=== PATIENT | male | born 2000 | race Two or more races ===

== ENCOUNTER 2022-03-05 12:16 | Emergency (ER) | payer BC, OTHER ==
[~2022-03-05] VITALS: Ht 167.6 cm; Wt 59.0 kg
[2022-03-05 12:29] VITALS: BP 154/100
[2022-03-05 14:09] LABS: Basophils # (auto) 0 10 ^3/uL (0-0.2); Basophils % (auto) 0.3 % (0.0-2.0); Eosinophils # (auto) 0.1 10 ^3/uL (0-0.8); Eosinophils % (auto) 0.9 % (0.0-7.0); Hematocrit 49.5 % (41.0-53.0); Hemoglobin 16.1 g/dL (13.5-17.5); Lymphocytes # (auto) 1.1 10 ^3/uL (0.4-5.4); Lymphocytes % (auto) 11.6 % (10.0-50.0); Mean Corpuscular Hemoglobin 29.1 pg (28.0-32.0); Mean Corpuscular Hgb Conc. 32.5 g/dL (32.0-36.0); Mean Corpuscular Volume 89.7 fL (80.0-100.0); Monocytes # (auto) 0.6 10 ^3/uL (0-1.3); Monocytes % (auto) 6.6 % (0.0-12.0); Neutrophils # (auto) 7.5 10 ^3/uL (1.6-8.6); Neutrophils % (auto) 80.6 % (37.0-80.0); Red Blood Cells 5.51 10^6/uL (4.5-5.90); Red Cell Distribution Width 13.7 % (11.8-14.3); White Blood Cell 9.3 10^3/uL (4.4-10.8)
[2022-03-05 14:26] LABS: Albumin 4.3 g/dL (3.4-5.0); Calcium 9.3 mg/dL (8.5-10.1); Potassium 4.2 mmol/L (3.5-5.1)
[2022-03-05 14:30] LABS: Urine Bacteria NONE SEEN /hpf (None Seen); Urine Blood Negative /uL (Negative); Urine Specific Gravity 1.032 (1.001-1.035); Urine WBC <1 /hpf (0 - 3)
[2022-03-05 14:32] LABS: BUN/Creatinine Ratio 15.6; Bilirubin, Total 0.6 mg/dL (0.2-1.0); Total Protein 8.9 g/dL (6.4-8.2)
== END 2022-03-05 17:10 | disposition home or self-care (01) ==
LOC: ER 12:16
DX: N43.3 Hydrocele, unspecified (principal); N50.3 Cyst of epididymis
CPT/HCPCS: 36415; 76870; 80053; 81001; 83605; 85025